=== PATIENT | male | born 1965 | race Caucasian/White ===

== ENCOUNTER 2016-11-29 19:45 | Emergency (ER) | payer MEDICAID ==
[2016-11-29 19:45] VITALS: BMI 33.3
[2016-11-29 21:05] VITALS: BP 138/92; PULSE 99; RESP 20; TEMP 99; O2SAT 97
[2016-11-29] MEDS ORDERED: Lidocaine 1% w Epi 1:100,000 Inj ONE (22:25)
[2016-11-29] MEDS ORDERED: Oxycodone/Acetaminophen 5/325 mg Tab PO STA (23:05)
[2016-11-29] MEDS ORDERED: Oxycodone/Acetaminophen 5/325 mg Tab ONE (23:08)
--- NOTE | 2016-11-29 23:15 | C.PDOC ---
History Of Present Illness 51 year old patient, with a past medical history of diabetes, presents to the ED complaining of a painful lump to the left buttock for the past 3-4 days. Patient states the pain has progressively worsened. He denies any past occurrences of similar symptoms. Patient denies fever, shortness of breath, or vomiting. Time Seen by Provider: 11/29/16 21:53 Chief Complaint (Nursing): Abnormal Skin Integrity History Per: Patient History/Exam Limitations: no limitations Onset/Duration Of Symptoms: Days (3-4) Current Symptoms Are (Timing): Still Present Location Of Injury: Left: Buttock Quality Of Symptoms: Painful Severity: Moderate Pain Scale Rating Of: 4 Recent travel outside of the [place]: No Past Medical History Reviewed: Historical Data, Nursing Documentation, Vital Signs Vital Signs: Last Vital Signs Temp 99 F 11/29/16 21:02 Pulse 99 H 11/29/16 21:02 Resp 20 11/29/16 21:02 BP 138/92 H 11/29/16 21:02 Pulse Ox 97 11/29/16 23:37 - Medical History PMH: Arthritis (NECK), Back Problems (Herniated Disc), Diabetes, Fractures ( FRACTURE RIGHT ANKLE ORIF), Chronic Pain (Lower back) - [facility] Procedures APPLICATION OF SPLINT (08/19/14) CLOSURE SKIN & SUBCUTANEOUS NEC (10/31/14) OP RED-INT FIX TIB/FIBUL (09/17/14) TETANUS TOXOID ADMINIST (10/31/14) Family History: States: Unknown Family Hx - Social History Hx Tobacco Use: No Hx Alcohol Use: Yes Hx Substance Use: No - Immunization History Hx Tetanus Toxoid Vaccination: Yes Hx Influenza Vaccination: Yes Hx Pneumococcal Vaccination: No Review Of Systems Except As Marked, All Systems Reviewed And Found Negative. Constitutional: Negative for: Fever Respiratory: Negative for: Shortness of Breath Gastrointestinal: Negative for: Vomiting Skin: Positive for: Other (lump to left buttock) Physical Exam - Physical Exam Appears: Non-toxic, No Acute Distress Skin: Warm, Dry, Other (localized tender, fluctuant mass with erythema to the left gluteus not involving the perianal region) Eye(s): bilateral: Normal Inspection, PERRL Cardiovascular: Rhythm Regular Respiratory: Normal Breath Sounds, No Rales, No Rhonchi, No Wheezing ED Course And Treatment O2 Sat by Pulse Oximetry: 97 (RA) Pulse Ox Interpretation: Normal Progress Note: Plan: -Cleocin, Percocet. Upon reassessment, patient is resting comfortably, and is in no acute distress. Patient was instructed to follow up for wound check/packing removal in 2 days. Return if symptoms worsen. - Incision & Drainage Of Abscess Anesthesia: Lidocaine 1%, With Epi Prep Used: Sterile Water Procedure: Incised W/Scalpel Blade#: (15), Drained Pus, Irrigated Cavity W/ Saline (patted dry), Packed W/Gauze Disposition Counseled Patient/Family Regarding: Diagnosis, Need For Followup, Rx Given - Disposition Referrals: Rigoberto Monge MD [Staff Provider] - Disposition: HOME/ ROUTINE Disposition Time: 23:12 Condition: GOOD Additional Instructions: Please follow up in 2 days wound check- packing removal Take meds as directed Return to ER if worse Prescriptions: Clindamycin [Cleocin] 300 mg PO QID #28 cap Instructions: Abscess (ED) - Clinical Impression Clinical Impression: Left buttock abscess - 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 - Scribe Statement The provider has reviewed the documentation as recorded by the Scribe Christina Brown All medical record entries made by the Scribe were at my direction and personally dictated by me. I have reviewed the chart and agree that the record accurately reflects my personal performance of the history, physical exam, medical decision making, and the department course for this patient. I have also personally directed, reviewed, and agree with the discharge instructions and disposition.
== END 2016-11-29 23:17 | disposition home or self-care (01) ==
LOC: C.ER 19:45
DX: L02.31 Cutaneous abscess of buttock (principal)

== ENCOUNTER 2017-12-15 07:59 | Emergency (ER) | payer MEDICAID ==
[2017-12-15 07:59] VITALS: BMI 33.3
[2017-12-15] MEDS ORDERED: Lidocaine 1% w Epi 1:100,000 Inj INJ STA (08:34)
[2017-12-15] MEDS ORDERED: Oxycodone/Acetaminophen 5/325 mg Tab PO STA ×2 (09:31→09:48)
--- NOTE | 2017-12-15 09:32 | C.PDOC ---
History Of Present Illness 52 y/o male presents to the ER complaining of an abscess in the left axillary area which has been present for the past 5 days. Patient denies having fever, chills, and other complaints. Time Seen by Provider: 12/15/17 08:10 Chief Complaint (Nursing): Abnormal Skin Integrity History Per: Patient History/Exam Limitations: no limitations Onset/Duration Of Symptoms: Days Current Symptoms Are (Timing): Still Present Severity: Moderate Past Medical History Reviewed: Historical Data, Nursing Documentation, Vital Signs Vital Signs: Last Vital Signs Temp 98.4 F 12/15/17 09:53 Pulse 96 H 12/15/17 09:53 Resp 18 12/15/17 09:53 BP 148/85 12/15/17 09:53 Pulse Ox 95 12/15/17 13:14 - Medical History PMH: Arthritis (NECK), Back Problems (Herniated Disc), Diabetes, Fractures ( FRACTURE RIGHT ANKLE ORIF), Chronic Pain (Lower back) Denies: Chronic Kidney Disease Other Surgeries: Hx of surgeries - [facility] Procedures APPLICATION OF SPLINT (08/19/14) CLOSURE SKIN & SUBCUTANEOUS NEC (10/31/14) OP RED-INT FIX TIB/FIBUL (09/17/14) TETANUS TOXOID ADMINIST (10/31/14) Family History: States: No Known Family Hx, Unknown Family Hx - Social History Hx Tobacco Use: No Hx Alcohol Use: Yes Hx Substance Use: No - Immunization History Hx Tetanus Toxoid Vaccination: Yes Hx Influenza Vaccination: No Hx Pneumococcal Vaccination: No Review Of Systems Except As Marked, All Systems Reviewed And Found Negative. Constitutional: Negative for: Fever, Chills Skin: Positive for: Other (abscess to left axillary area) Physical Exam - Physical Exam Appears: Non-toxic, No Acute Distress Skin: Normal Color, Warm, Other (abscess to left lateral chest area with fluctuance and surrounding erythema) Head: Atraumatic, Normacephalic Eye(s): bilateral: Normal Inspection Nose: Normal Oral Mucosa: Moist Neck: Supple Chest: Symmetrical Cardiovascular: Rhythm Regular Respiratory: Normal Breath Sounds, No Rales, No Rhonchi, No Wheezing Extremity: Normal ROM Neurological/Psych: Oriented x3, Normal Speech ED Course And Treatment O2 Sat by Pulse Oximetry: 95 (RA) Pulse Ox Interpretation: Normal Progress Note: I&D performed. Patient tolerated well. Patient given Clindamycin PO and Percocet PO. He has been discharged and told to return to ER in 2 days for wound check. - Incision & Drainage Of Abscess Anesthesia: Lidocaine 1%, With Epi Prep Used: Sterile Water, Betadine Procedure: Incised W/Scalpel Blade#: (11), Drained Pus, Irrigated Cavity W/ Saline, Probed To Break Up Loculations, Packed W/Gauze (1/4 inch packing material), Cultures Obtained And Sent To Lab Disposition - Disposition Referrals: Rigoberto Monge MD [Staff Provider] - Disposition: HOME/ ROUTINE Disposition Time: 09:31 Condition: STABLE Additional Instructions: Follow up with PMD within 1-2 days. Return to ED if feel worse. Dressing change and packing removal in 2 days. Prescriptions: Clindamycin [Cleocin] 300 mg PO Q6 #28 cap Instructions: Skin Abscess, Abscess Incision and Drainage Forms: [employer] (Icelandic) - Clinical Impression Clinical Impression: Abscess - PA / SOCIAL SCIENCES INSTRUCTOR / Resident Statement MD/DO has reviewed & agrees with the documentation as recorded. - Scribe Statement The provider has reviewed the documentation as recorded by the Feliibe Michelle Multani Provider Attestation All medical record entries made by the Scribe were at my direction and personally dictated by me. I have reviewed the chart and agree that the record accurately reflects my personal performance of the history, physical exam, medical decision making, and the department course for this patient. I have also personally directed, reviewed, and agree with the discharge instructions and disposition.
[2017-12-15] MEDS ORDERED: Oxycodone/Acetaminophen 5/325 mg Tab ONE (09:47)
[2017-12-15 09:55] VITALS: BP 148/85; PULSE 96; RESP 18; TEMP 98.4
[2017-12-15 13:04] VITALS: O2SAT 95
== END 2017-12-15 09:53 | disposition home or self-care (01) ==
LOC: C.ER 07:59
DX: L02.412 Cutaneous abscess of left axilla (principal); E11.9 Type 2 diabetes mellitus without complications

== ENCOUNTER 2018-12-13 09:58 | Emergency (ER) | payer MEDICAID ==
[2018-12-13 09:58] VITALS: BMI 32.3
[2018-12-13] MEDS ORDERED: Iohexol 240 (50 ml) ONE (10:56)
[2018-12-13] MEDS ORDERED: Sodium Chloride 0.9% 1,000 ML ONE (10:56)
[2018-12-13 10:59] LABS: BASO # 0.1 K/uL (0.0-0.2); BASO % 0.4 % (0.0-2.0); EOS # 0.3 K/uL (0.0-0.7); EOS % 1.9 % (0.0-4.0); HEMOGLOBIN 16.1 g/dL (12.0-18.0); LYMPH # 5.2 K/uL (1.0-4.3); MEAN CELL VOLUME 92.4 fL (80.0-94.0); MEAN CORPUSCULAR HEMOGLOBIN 30.9 pg (27.0-31.0); MEAN CORPUSCULAR HGB CONC 33.4 g/dL (33.0-37.0); MEAN PLATELET VOLUME 8.3 fL (7.2-11.7); MONO # 0.9 K/uL (0.0-0.8); MONO % 5.3 % (0.0-10.0); NEUT # 10.8 K/uL (1.8-7.0); NEUT % 62.4 % (50.0-75.0); NRBC % 0.1 % (0.0-2.0); RBC 5.2 Mil/uL (4.40-5.90)
[2018-12-13] MEDS: Sodium Chloride 0.9% 1,000 ML IV ONE (11:00)
[2018-12-13 11:01] LABS: WHITE BLOOD COUNT 17.3 K/uL (4.8-10.8)
[2018-12-13 11:08] LABS: INR 1.1; PROTHROMBIN TIME 11.8 SECONDS (9.7-12.2)
[2018-12-13 11:11] LABS: ALB/GLOB RATIO 1.4 (1.0-2.1); ALBUMIN 4.4 g/dL (3.5-5.0); ALT/SGPT 51 U/L (21-72); AST/SGOT 29 U/L (17-59); BLOOD UREA NITROGEN 17 mg/dL (9-20); CALCIUM 9.8 mg/dl (8.6-10.4); GFR NON-AFRICAN AMERICAN > 60; LIPASE 66 U/L (23-300)
--- NOTE | 2018-12-13 11:13 | C.PDOC ---
History Of Present Illness 53-year-old male presents to the ED for evaluation of right lower quadrant abdominal pain which began yesterday. Patient denies fever, chills, vomiting and diarrhea at this time. Time Seen by Provider: 12/13/18 10:23 Chief Complaint (Nursing): Abdominal Pain History Per: Patient History/Exam Limitations: no limitations Onset/Duration Of Symptoms: Hrs Current Symptoms Are (Timing): Still Present Location Of Pain/Discomfort: RLQ Quality Of Discomfort: "Pain" Associated Symptoms: denies: Fever, Chills, Vomiting, Diarrhea Additional History Per: Patient Past Medical History Reviewed: Historical Data, Nursing Documentation, Vital Signs Vital Signs: Last Vital Signs Temp 96.2 F L 12/13/18 10:11 Pulse 60 12/13/18 10:11 Resp 20 12/13/18 10:11 BP 158/101 H 12/13/18 10:11 Pulse Ox 97 12/13/18 10:11 - Medical History PMH: Arthritis (NECK), Back Problems (Herniated Disc), Diabetes, Fractures (FRACTURE RIGHT ANKLE ORIF), Chronic Pain (Lower back) Denies: Chronic Kidney Disease Surgical History: No Surg Hx - [facility] Procedures APPLICATION OF SPLINT (08/19/14) CLOSURE SKIN & SUBCUTANEOUS NEC (10/31/14) OP RED-INT FIX TIB/FIBUL (09/17/14) TETANUS TOXOID ADMINIST (10/31/14) Family History: States: Unknown Family Hx - Social History Hx Tobacco Use: No Hx Alcohol Use: Yes Hx Substance Use: No - Immunization History Hx Tetanus Toxoid Vaccination: Yes Hx Influenza Vaccination: No Hx Pneumococcal Vaccination: No Review Of Systems Constitutional: Negative for: Fever, Chills Gastrointestinal: Positive for: Abdominal Pain (right lower quadrant ). Negative for: Vomiting, Diarrhea Physical Exam - Physical Exam Appears: Non-toxic, No Acute Distress Skin: Normal Color, Warm, Dry Head: Atraumatic, Normacephalic Eye(s): bilateral: Normal Inspection Oral Mucosa: Moist Neck: Supple Chest: Symmetrical, No Deformity, No Tenderness Cardiovascular: Rhythm Regular, No Murmur Respiratory: Normal Breath Sounds, No Rales, No Rhonchi, No Wheezing Gastrointestinal/Abdominal: Soft, Tenderness (right lower quadrant ), Guarding, No Rebound Extremity: Normal ROM, Capillary Refill (less than 2 seconds ) Neurological/Psych: Oriented x3, Normal Speech, Normal Cognition ED Course And Treatment - Laboratory Results Result Diagrams: 12/13/18 10:55 12/13/18 10:55 Lab Results: PT 11.8 SECONDS (9.7-12.2) 12/13/18 10:55 INR 1.1 12/13/18 10:55 APTT 31 SECONDS (21-34) 12/13/18 10:55 Total Bilirubin 0.7 mg/dL (0.2-1.3) 12/13/18 10:55 AST 29 U/L (17-59) 12/13/18 10:55 ALT 51 U/L (21-72) 12/13/18 10:55 Alkaline Phosphatase 125 U/L (38-126) 12/13/18 10:55 Total Protein 7.6 g/dL (6.3-8.3) 12/13/18 10:55 Albumin 4.4 g/dL (3.5-5.0) 12/13/18 10:55 Globulin 3.2 gm/dL (2.2-3.9) 12/13/18 10:55 Albumin/Globulin Ratio 1.4 (1.0-2.1) 12/13/18 10:55 Lipase 66 U/L (23-300) 12/13/18 10:55 O2 Sat by Pulse Oximetry: 97 (on RA) Pulse Ox Interpretation: Normal - CT Scan/US CT A/P Other Rad Studies (CT/US): Read By Radiologist, Radiology Report Reviewed CT/US Interpretation: Date of service: 12/13/2018. PROCEDURE: CT Abdomen and Pelvis with contrast. HISTORY: RLQ abd pain. COMPARISON: 01/03/2018. TECHNIQUE: CT scan of the abdomen and pelvis was performed after administration of intravenous contrast. Oral contrast was administered. Coronal and sagittal reformatted images were obtained. Contrast dose: 100 mL Visipaque 320. Radiation dose: Total exam DLP = 1332.92 mGy-cm. This CT exam was performed using one or more of the following dose reduction techniques: Automated exposure control, adjustment of the mA and/or kV according to patient size, and/or use of iterative reconstruction technique. FINDINGS: LOWER THORAX: The visualized lungs are clear. LIVER: Normal in size with homogeneous enhancement. No gross lesion or ductal dilatation. GALLBLADDER AND BILE DUCTS: well distended. No calcified gallstones, wall thickening or pericholecystic fluid. PANCREAS: Normal in size with homogeneous enhancement. No gross lesion or ductal dilatation. SPLEEN: Normal in size and appearance. ADRENALS: The right adrenal gland is normal in appearance. There is a stable 1.7 x 1.2 cm low- attenuation nodule in the left adrenal gland. KIDNEYS AND URETERS: Normal in size with homogeneous enhancement. No hydronephrosis. No solid mass. VASCULATURE: No aortic aneurysm. There are no aortic atherosclerotic calcifications or mural plaque present. BOWEL: There is mild dilatation and m ild circumferential mural thickening in the proximal small bowel loops. The distal small bowel loops are normal in caliber. There is mild circumferential mural thickening in the colon and rectum, worse in the sigmoid colon with mild mural enhancement and pericolonic inflammatory changes in the sigmoid colon. There is sigmoid diverticulosis. APPENDIX: Normal appendix. PERITONEUM: No free fluid. No free air. LYMPH NODES: No enlarged lymph nodes. BLADDER: There is moderate circumferential mural thickening of the urinary bladder wall. REPRODUCTIVE: The uterus is surgically absent. BONES: No acute fracture. Within normal limits for the patient's age. OTHER FINDINGS: None. IMPRESSION: 1. Findings are most compatible with nonspecific acute infectious/inflammatory enteritis and colitis, worse in the sigmoid colon with pericolonic inflammatory changes. No evidence for perforation or abscess. 2. Sigmoid diverticulosis. 3. Moderate circumferential mural thickening of the urinary bladder wall is nonspecific and could be related to underdistention however cystitis is also a consideration. Please correlate with urine analysis. 4. Stable 1.7 x 1.5 cm left adrenal nodule, likely a benign adenoma. Progress Note: Bloodwork, urinalysis, CT A/P ordered and reviewed. Protonix IVP and IV Fluids given. Patient was oddered an admission, but he preferred to try outpatient po treatment due to the family problems. Patient was give a dose of Cipro and Flagyl po and was d/c home with instruction to f/u with PMD and GI and to return to ED immediately if feel worse. Disposition - Disposition Referrals: Rigoberto Monge MD [Staff Provider] - Disposition: HOME/ ROUTINE Disposition Time: 15:45 Condition: IMPROVED Additional Instructions: Follow up with PMD within 1-2 days. Return to ED if feel worse. Prescriptions: Ciprofloxacin [Cipro] 1 tab PO BID #14 tab metroNIDAZOLE [Flagyl] 500 mg PO Q8 #30 tab Instructions: Colitis Forms: [employer] (Kittitian) - Clinical Impression Clinical Impression: Colitis - PA / [employer] JUSTICE / Resident Statement MD/DO has reviewed & agrees with the documentation as recorded. - Scribe Statement The provider has reviewed the documentation as recorded by the Scribe (Ya Brown) All medical record entries made by the Scribe were at my direction and personally dictated by me. I have reviewed the chart and agree that the record accurately reflects my personal performance of the history, physical exam, medical decision making, and the department course for this patient. I have also personally directed, reviewed, and agree with the discharge instructions and disposition.
[2018-12-13] MEDS: Iohexol 240 (50 ml) PO STA (11:15)
[2018-12-13 11:36] LABS: URINE BILIRUBIN NEGATIVE (NEGATIVE); URINE BLOOD NEGATIVE (NEGATIVE); URINE CLARITY Clear (Clear); URINE COLOR Yellow (YELLOW); URINE GLUCOSE (UA) 2+ mg/dL (Normal); URINE LEUKOCYTE ESTERASE NEG Leu/uL (Negative); URINE PROTEIN NEGATIVE (NEGATIVE); URINE UROBILINOGEN NORMAL mg/dL (0.2-1.0)
[2018-12-13] MEDS ORDERED: Iodixanol 320 MG/ML 100 ML BOTTLE IV ONE (12:55)
[2018-12-13 13:52] VITALS: TEMP 98.7
--- NOTE | 2018-12-13 13:57 | CT ---
Date of service: 12/13/2018 PROCEDURE: CT Abdomen and Pelvis with contrast HISTORY: RLQ abd pain COMPARISON: 01/03/2018. TECHNIQUE: CT scan of the abdomen and pelvis was performed after administration of intravenous contrast. Oral contrast was administered. Coronal and sagittal reformatted images were obtained. Contrast dose: 100 mL Visipaque 320 Radiation dose: Total exam DLP = 1332.92 mGy-cm. This CT exam was performed using one or more of the following dose reduction techniques: Automated exposure control, adjustment of the mA and/or kV according to patient size, and/or use of iterative reconstruction technique. FINDINGS: LOWER THORAX: The visualized lungs are clear. LIVER: Normal in size with homogeneous enhancement. No gross lesion or ductal dilatation. GALLBLADDER AND BILE DUCTS: well distended. No calcified gallstones, wall thickening or pericholecystic fluid. PANCREAS: Normal in size with homogeneous enhancement. No gross lesion or ductal dilatation. SPLEEN: Normal in size and appearance. ADRENALS: The right adrenal gland is normal in appearance. There is a stable 1.7 x 1.2 cm low-attenuation nodule in the left adrenal gland. KIDNEYS AND URETERS: Normal in size with homogeneous enhancement. No hydronephrosis. No solid mass. VASCULATURE: No aortic aneurysm. There are no aortic atherosclerotic calcifications or mural plaque present. BOWEL: There is mild dilatation and mild circumferential mural thickening in the proximal small bowel loops. The distal small bowel loops are normal in caliber. There is mild circumferential mural thickening in the colon and rectum, worse in the sigmoid colon with mild mural enhancement and pericolonic inflammatory changes in the sigmoid colon. There is sigmoid diverticulosis. APPENDIX: Normal appendix. PERITONEUM: No free fluid. No free air. LYMPH NODES: No enlarged lymph nodes. BLADDER: There is moderate circumferential mural thickening of the urinary bladder wall. REPRODUCTIVE: The uterus is surgically absent. BONES: No acute fracture. Within normal limits for the patient's age. OTHER FINDINGS: None. IMPRESSION: 1. Findings are most compatible with nonspecific acute infectious/inflammatory enteritis and colitis, worse in the sigmoid colon with pericolonic inflammatory changes. No evidence for perforation or abscess. 2. Sigmoid diverticulosis. 3. Moderate circumferential mural thickening of the urinary bladder wall is nonspecific and could be related to underdistention however cystitis is also a consideration. Please correlate with urine analysis. 4. Stable 1.7 x 1.5 cm left adrenal nodule, likely a benign adenoma.
[2018-12-13 15:35] VITALS: BP 156/78; PULSE 95
[2018-12-13 15:48] VITALS: O2SAT 97
[2018-12-13 15:56] VITALS: RESP 17
--- NOTE | 2018-12-15 00:03 | CARD ---
APPROVED REPORT Date of service: 12/13/2018 EKG Measurement Heart [id number] ME 200P [id number] <Conclusion> Atrial tachycardia Right bundle branch block Left anterior fascicular block Bifascicular block Abnormal ECG
== END 2018-12-13 15:55 | disposition home or self-care (01) ==
LOC: C.ER 09:58
DX: K52.9 Noninfective gastroenteritis and colitis, unspecified (principal); E11.9 Type 2 diabetes mellitus without complications
CPT/HCPCS: 74177; 80053; 81001; 83690; 85025; 85610; 85730; 93005; 96361; 96374; 99285; C9113; J7030; Q9966; Q9967